=== PATIENT | male | born 1980 | race Caucasian/White ===

== ENCOUNTER 2017-09-19 22:49 | Observation (INO) ==
[2017-09-19] MEDS ORDERED: ONDANSETRON 4 MG/2 ML VIAL IV STA (23:49)
[2017-09-19] MEDS ORDERED: SODIUM CHLORIDE 0.9% 1,000 ML IV STA (23:49)
[2017-09-19] MEDS ORDERED: LORazepam 2 MG/1 ML VIAL IV STA (23:50)
[2017-09-20 00:14] LABS: Basophils # 0.1 10*3/uL (0.0-0.2); Basophils % 0.4 % (0.0-0.8); Eosinophils % 0.1 % (0.00-10.9); Hematocrit 49.8 VOL% (42.0-52.0); Hemoglobin 16.6 GM/DL (14.0-18.0); Immature Granulocytes % 0.5 %; Lymphocytes # 2.3 10*3/uL (1.4-4.0); Lymphocytes % 12.4 % (21.2-54.2); Mean Corpuscular HGB Conc 33.3 GM/DL (32-36); Mean Corpuscular Hemoglobin 28 PG (27-34); Mean Platelet Volume 11.2 FL (9.6-12.0); Monocytes # 1.1 10*3/uL (0.11-0.8); Monocytes % 6.1 % (1.7-12.7); Neutrophils # 14.9 10*3/uL (1.4-7.4); Neutrophils % 80.5 % (38.7-73.9); Platelet Count 292 T/CUMM (130-400); Red Blood Count 5.86 MC/CUMM (3.8-5.5); Red Cell Distribution Width 13.2 % (9.3-17.3); White Blood Count 18.5 T/CUMM (4-12)
[2017-09-20 00:34] LABS: Bilirubin,Total 0.6 MG/DL (0.2-1.0); Calcium 9.4 MG/DL (8.5-10.1); Osmolality,Calculated 277.2 MOS/KG (273-304); Potassium 4.1 MMOL/L (3.5-5.1); Total Protein 8.9 G/DL (6.4-8.3)
[2017-09-20] MEDS ORDERED: SODIUM CHLORIDE 0.9% 1,000 ML IV STA (02:05)
[2017-09-20] MEDS ORDERED: CEFEPIME 2,000 MG in SODIUM CHLORIDE 0.9% 100 ML IV STA (02:13)
[2017-09-20] MEDS ORDERED: ACETAMINOPHEN 500 MG TABLET PO STA (03:39)
[2017-09-20] MEDS ORDERED: ACETAMINOPHEN 325 MG TABLET PO PRN (04:24)
[2017-09-20] MEDS ORDERED: ONDANSETRON 4 MG/2 ML VIAL IV PRN (04:24)
[2017-09-20] MEDS: SODIUM CHLORIDE 0.9% 1,000 ML IV SCH ×3 (05:42→20:08)
[2017-09-20 06:03] LABS: PT Patient Result 10.7 SECS; Partial Thromboplastin Time 25.9 SECS (0-40)
[2017-09-20 06:10] LABS: CKMB % 1.9 %
[2017-09-20 06:55] LABS: Barbiturates Screen,Urine Negative (Negative); Benzodiazepines Screen,Urine Negative (Negative); Cannabinoid Screen,Urine Negative (Negative); Opiate Screen,Urine Negative (Negative); Phencyclidine Screen,Urine Negative (Negative)
[2017-09-20 07:05] LABS: Amorphous Crystals,Urine Occasional /HPF (Few); Apearance,Urine CLEAR (Clear); Bacteria,Urine Occasional /HPF (Few); Bilirubin,Urine Negative (Negative); Blood, Urine Small mg/dL (Negative); Glucose,Urine (UA) Negative (Negative); Hyaline Casts,Urine 10 /LPF (0-3); Ketones,Urine Negative (Negative); Mucus,Urine Occasional /LPF (Occasional); Nitrite,Urine Negative (Negative); Protein,Urine Negative; RBC,Urine 12 /HPF (0-4); Squamous Epithelial Cell,Urine Occasional /HPF (0-10); Urine Color Yellow (Yellow); Urine Specific Gravity 1.017 (1.001-1.035); Urine Urobilinogen < 2.0 EU/DL (0.2-1.0); WBC,Urine 6 /HPF (0-6)
[2017-09-20 13:25] LABS: Basophils # 0.1 10*3/uL (0.0-0.2); Basophils % 0.7 % (0.0-0.8); Eosinophils # 0.1 10*3/uL (0.0-0.87); Eosinophils % 1.3 % (0.00-10.9); Hematocrit 39.8 VOL% (42.0-52.0); Hemoglobin 13.1 GM/DL (14.0-18.0); Immature Granulocytes % 0.2 %; Immature Granulocytes Absolute 0.02 #; Lymphocytes # 2.7 10*3/uL (1.4-4.0); Lymphocytes % 30.8 % (21.2-54.2); Mean Corpuscular HGB Conc 32.9 GM/DL (32-36); Mean Corpuscular Hemoglobin 28 PG (27-34); Mean Corpuscular Volume 86.1 FL (87-102); Mean Platelet Volume 11.5 FL (9.6-12.0); Monocytes # 0.7 10*3/uL (0.11-0.8); Monocytes % 7.4 % (1.7-12.7); Neutrophils # 5.2 10*3/uL (1.4-7.4); Neutrophils % 59.6 % (38.7-73.9); Platelet Count 213 T/CUMM (130-400); Red Blood Count 4.62 MC/CUMM (3.8-5.5); Red Cell Distribution Width 13.4 % (9.3-17.3); White Blood Count 8.7 T/CUMM (4-12)
[2017-09-20 13:54] LABS: Albumin 3.3 G/DL (3.4-5.0); Bilirubin,Total 0.4 MG/DL (0.2-1.0); Calcium 7.9 MG/DL (8.5-10.1); Osmolality,Calculated 282.5 MOS/KG (273-304); Potassium 3.4 MMOL/L (3.5-5.1); Total Protein 6.5 G/DL (6.4-8.3)
[2017-09-21 03:52] LABS: Basophils # 0.1 10*3/uL (0.0-0.2); Basophils % 0.8 % (0.0-0.8); Eosinophils # 0.2 10*3/uL (0.0-0.87); Eosinophils % 3.3 % (0.00-10.9); Hematocrit 38.4 VOL% (42.0-52.0); Hemoglobin 12.7 GM/DL (14.0-18.0); Immature Granulocytes % 0.3 %; Immature Granulocytes Absolute 0.02 #; Lymphocytes # 2.3 10*3/uL (1.4-4.0); Lymphocytes % 37.5 % (21.2-54.2); Mean Corpuscular HGB Conc 33.1 GM/DL (32-36); Mean Corpuscular Hemoglobin 29 PG (27-34); Mean Corpuscular Volume 86.1 FL (87-102); Mean Platelet Volume 11.9 FL (9.6-12.0); Monocytes # 0.5 10*3/uL (0.11-0.8); Monocytes % 8.5 % (1.7-12.7); Neutrophils # 3.1 10*3/uL (1.4-7.4); Neutrophils % 49.6 % (38.7-73.9); Platelet Count 184 T/CUMM (130-400); Red Blood Count 4.46 MC/CUMM (3.8-5.5); Red Cell Distribution Width 13.7 % (9.3-17.3); White Blood Count 6.1 T/CUMM (4-12)
[2017-09-21] MEDS: SODIUM CHLORIDE 0.9% 1,000 ML IV SCH (04:03)
[2017-09-21 04:16] LABS: Albumin 2.9 G/DL (3.4-5.0); Bilirubin,Total 0.6 MG/DL (0.2-1.0); Calcium 7.7 MG/DL (8.5-10.1); Osmolality,Calculated 289.8 MOS/KG (273-304); Potassium 3.9 MMOL/L (3.5-5.1); Total Protein 5.5 G/DL (6.4-8.3)
[2017-09-21 07:39] VITALS: BP 113/70
== END 2017-09-21 10:40 | disposition home or self-care (01) ==
LOC: N.ED 22:49 → N.EDINP 22:49 → N.2E 09-20 04:43

== ENCOUNTER 2017-12-18 12:14 | Observation (INO) ==
[2017-12-18 13:53] LABS: Apearance,Urine CLEAR (Clear); Bilirubin,Urine Negative (Negative); Blood, Urine Large mg/dL (Negative); Glucose,Urine (UA) Negative (Negative); Hyaline Casts,Urine 1 /LPF (0-3); Ketones,Urine Negative (Negative); Mucus,Urine Occasional /LPF (Occasional); Nitrite,Urine Negative (Negative); Protein,Urine Negative; RBC,Urine 38 /HPF (0-4); Squamous Epithelial Cell,Urine Occasional /HPF (0-10); Urine Color Yellow (Yellow); Urine Specific Gravity 1.017 (1.001-1.035); Urine Urobilinogen < 2.0 EU/DL (0.2-1.0); WBC,Urine 1 /HPF (0-6)
[2017-12-18] MEDS ORDERED: ONDANSETRON 4 MG/2 ML VIAL IV STA (14:22)
[2017-12-18] MEDS ORDERED: KETOROLAC 30 MG/1 ML VIAL IV STA (14:22)
[2017-12-18] MEDS ORDERED: ONDANSETRON 4 MG/2 ML VIAL ONE ×2 (14:23→16:48)
[2017-12-18] MEDS ORDERED: KETOROLAC 30 MG/1 ML VIAL ONE (14:23)
[2017-12-18] MEDS ORDERED: HYDROmorphone 2 MG/1 ML VIAL IV STA ×3 (14:36→16:05)
[2017-12-18] MEDS ORDERED: HYDROmorphone 2 MG/1 ML VIAL ONE ×2 (14:37→16:07)
[2017-12-18] MEDS ORDERED: SODIUM CHLORIDE 0.9% 1,000 ML IV STA (14:42)
[2017-12-18 15:03] LABS: Basophils # 0.1 10*3/uL (0.0-0.2); Basophils % 0.8 % (0.0-0.8); Eosinophils # 0.3 10*3/uL (0.0-0.87); Eosinophils % 3.8 % (0.00-10.9); Hematocrit 45.6 VOL% (42.0-52.0); Hemoglobin 14.9 GM/DL (14.0-18.0); Immature Granulocytes % 0.4 %; Immature Granulocytes Absolute 0.03 #; Lymphocytes % 24.7 % (21.2-54.2); Mean Corpuscular HGB Conc 32.7 GM/DL (32-36); Mean Corpuscular Hemoglobin 29 PG (27-34); Mean Corpuscular Volume 87.4 FL (87-102); Mean Platelet Volume 11.5 FL (9.6-12.0); Monocytes # 0.5 10*3/uL (0.11-0.8); Monocytes % 6.3 % (1.7-12.7); Neutrophils # 5.1 10*3/uL (1.4-7.4); Platelet Count 222 T/CUMM (130-400); Red Blood Count 5.22 MC/CUMM (3.8-5.5); Red Cell Distribution Width 13.4 % (9.3-17.3); White Blood Count 7.9 T/CUMM (4-12)
[2017-12-18 15:38] LABS: Calcium 8.9 MG/DL (8.5-10.1); Osmolality,Calculated 282.3 MOS/KG (273-304)
[2017-12-18] MEDS ORDERED: ACETAMINOPHEN 325 MG TABLET PO PRN (17:27)
[2017-12-18] MEDS ORDERED: MORPHINE 4 MG/1 ML VIAL ONE (19:29)
[2017-12-18] MEDS: MORPHINE 10 MG/1 ML VIAL IV PRN ×2 (19:31→23:50)
[2017-12-18] MEDS: TAMSULOSIN 0.4 MG CAPSULE PO SCH (21:23)
[2017-12-18] MEDS: DEXTROSE 5% NACL 0.45% 1,000 ML IV SCH (21:23)
[2017-12-18] MEDS: ONDANSETRON 4 MG/2 ML VIAL IV PRN (23:49)
[2017-12-19] MEDS ORDERED: PROMETHAZINE 25 MG/1 ML VIAL IM PRN (00:34)
[2017-12-19] MEDS: MEPERIDINE 50 MG/1 ML VIAL IV PRN ×4 (00:59→21:49)
[2017-12-19] MEDS: DEXTROSE 5% NACL 0.45% 1,000 ML IV SCH ×3 (07:07→19:44)
[2017-12-19] MEDS: ONDANSETRON 4 MG/2 ML VIAL IV PRN (12:35)
[2017-12-19] MEDS: TAMSULOSIN 0.4 MG CAPSULE PO SCH ×2 (14:39→20:47)
[2017-12-20] MEDS ORDERED: FAMOTIDINE 20 MG TABLET PO ONE (05:00)
[2017-12-20] MEDS ORDERED: DIAZEPAM 5 MG TABLET PO ONE (05:00)
[2017-12-20] MEDS ORDERED: ONDANSETRON 4 MG/2 ML VIAL IV PRN ×2 (05:00→10:40)
[2017-12-20] MEDS: MEPERIDINE 50 MG/1 ML VIAL IV PRN (05:38)
[2017-12-20] MEDS ORDERED: cefTRIAXone 1,000 MG in SYRINGE 1 EACH IV ONE (07:00)
[2017-12-20] MEDS: DEXTROSE 5% NACL 0.45% 1,000 ML IV SCH (08:01)
[2017-12-20] MEDS: TAMSULOSIN 0.4 MG CAPSULE PO SCH (08:31)
[2017-12-20] MEDS ORDERED: ONDANSETRON 4 MG/2 ML VIAL ONE ×2 (10:37→10:41)
[2017-12-20] MEDS ORDERED: MIDAZOLAM 2 MG/2 ML VIAL ONE (10:37)
[2017-12-20] MEDS ORDERED: PROPOFOL 200 MG/20 ML VIAL IV ONE (10:37)
[2017-12-20] MEDS ORDERED: PHENYLEPHRINE 1 MG/10 ML SYRINGE IV ONE (10:37)
[2017-12-20] MEDS ORDERED: fentaNYL 100 MCG/2 ML VIAL ONE (10:37)
[2017-12-20] MEDS ORDERED: ePHEDrine 50 MG/ML AMP ONE (10:37)
[2017-12-20] MEDS ORDERED: SEVOFLURANE 1 UNIT/15 MINUTE INH ONE (10:37)
[2017-12-20] MEDS ORDERED: HYDROmorphone 2 MG/1 ML VIAL ONE (10:41)
[2017-12-20] MEDS: HYDROmorphone 2 MG/1 ML VIAL IV PRN ×4 (10:43→11:07)
[2017-12-20] MEDS ORDERED: MEPERIDINE 25 MG/1 ML VIAL ONE ×3 (11:09→11:32)
[2017-12-20] MEDS: MEPERIDINE 25 MG/1 ML VIAL IV PRN ×2 (11:11→11:32)
[2017-12-20 12:07] VITALS: BP 140/69
== END 2017-12-20 14:00 | disposition home or self-care (01) ==
LOC: N.ED 12:14 → N.EDINP 12:14 → N.5E 20:21
PROVIDERS: ADMIT Urology; ATTEND Urology

== ENCOUNTER 2021-11-15 09:20 | Observation (INO) ==
[2021-11-15] MEDS ORDERED: KETOROLAC 30 MG/1 ML VIAL IV STA (09:49)
[2021-11-15] MEDS ORDERED: ONDANSETRON 4 MG/2 ML VIAL IV STA ×2 (09:50→11:45)
[2021-11-15] MEDS ORDERED: ONDANSETRON 4 MG/2 ML VIAL ONE (09:50)
[2021-11-15] MEDS ORDERED: KETOROLAC 30 MG/1 ML VIAL ONE (09:50)
[2021-11-15] MEDS ORDERED: SODIUM CHLORIDE 0.9% 2,000 ML IV STA (09:56)
[2021-11-15 10:23] LABS: Albumin 4.1 G/DL (3.4-5.0); Bilirubin,Total 0.4 MG/DL (0.20-1.00); Calcium 9.2 MG/DL (8.5-10.1); Osmolality,Calculated 279.5 MOS/KG (273-304); Potassium 3.6 MMOL/L (3.5-5.1); Total Protein 7.6 G/DL (6.4-8.2)
[2021-11-15] MEDS ORDERED: PROMETHAZINE INJ 25 MG in SODIUM CHLORIDE 0.9% 50 ML IV STA (10:25)
[2021-11-15] MEDS ORDERED: HYDROmorphone 1 MG/1 ML SYRINGE IV STA ×3 (10:25→13:02)
[2021-11-15 10:27] LABS: Basophils # 0.1 10*3/uL (0.0-0.2); Basophils % 0.9 % (0.0-0.8); Eosinophils # 0.4 10*3/uL (0.0-0.87); Eosinophils % 4.6 % (0.00-10.9); Hematocrit 45.8 VOL% (42.0-52.0); Immature Granulocytes % 0.3 %; Immature Granulocytes Absolute 0.02 #; Lymphocytes # 1.9 10*3/uL (1.4-4.0); Lymphocytes % 23.9 % (21.2-54.2); Mean Corpuscular HGB Conc 30.1 GM/DL (32-36); Mean Corpuscular Volume 83.1 FL (87-102); Mean Platelet Volume 12.2 FL (9.6-12.0); Monocytes # 0.6 10*3/uL (0.11-0.8); Neutrophils % 63.3 % (38.7-73.9); Platelet Count 236 T/CUMM (130-400); Red Blood Count 5.51 MC/CUMM (3.8-5.5); Red Cell Distribution Width 14.6 % (9.3-17.3); White Blood Count 7.8 T/CUMM (4-12)
[2021-11-15] MEDS ORDERED: PROMETHAZINE 25 MG/1 ML VIAL ONE (10:27)
[2021-11-15 10:31] LABS: Hemoglobin 13.8 GM/DL (14.0-18.0)
[2021-11-15 12:34] LABS: Mucus,Urine Many /LPF (Occasional); RBC,Urine 1611 /HPF (0-4)
[2021-11-15 12:36] LABS: Bilirubin,Urine Small mg/dL (Negative); Blood, Urine Large mg/dL (Negative); Glucose,Urine (UA) Negative (Negative); Ketones,Urine Negative (Negative); Nitrite,Urine Negative (Negative); Protein,Urine 100 mg/dL (Negative); Urine Appearance Slightly Cloudy (Clear); Urine Color Brown (Yellow); Urine Specific Gravity 1.023 (1.001-1.035); Urine Urobilinogen 0.2 eU/dL (<2.0); Urine pH 5.5 (4.5-8.0)
[2021-11-15] MEDS ORDERED: ACETAMINOPHEN 325 MG TABLET PO PRN (14:20)
[2021-11-15] MEDS ORDERED: PROMETHAZINE 25 MG/1 ML VIAL IM PRN (14:20)
[2021-11-15] MEDS ORDERED: diphenhydrAMINE 50 MG/1 ML VIAL IV PRN (14:22)
[2021-11-15] MEDS ORDERED: SIMETHICONE CHEW 125 MG TABLET PO PRN (14:22)
[2021-11-15] MEDS ORDERED: oxyCODONE/ACETAMINOPHEN 5-325 MG TABLET PO PRN (14:22)
[2021-11-15] MEDS: cefTRIAXone 1,000 MG in SODIUM CHLORIDE 0.9% 100 ML IV SCH (14:54)
[2021-11-15] MEDS: ACETAMINOPHEN 325 MG TABLET PO SCH ×2 (15:44→21:28)
[2021-11-15] MEDS: HYDROmorphone 1 MG/1 ML SYRINGE IV PRN ×3 (16:41→21:29)
[2021-11-15] MEDS: SODIUM CHLORIDE 0.9% 1,000 ML IV SCH (16:41)
[2021-11-15] MEDS: FLUoxetine 20 MG CAPSULE PO SCH (21:28)
[2021-11-15] MEDS: DOCUSATE SODIUM 100 MG CAPSULE PO SCH (21:28)
[2021-11-16] MEDS: HYDROmorphone 1 MG/1 ML SYRINGE IV PRN ×6 (00:47→20:49)
[2021-11-16] MEDS: ONDANSETRON 4 MG/2 ML VIAL IV PRN ×3 (01:05→20:44)
[2021-11-16] MEDS: SODIUM CHLORIDE 0.9% 1,000 ML IV SCH ×3 (03:30→17:09)
[2021-11-16] MEDS: ACETAMINOPHEN 325 MG TABLET PO SCH ×4 (03:33→22:32)
[2021-11-16 05:09] LABS: Basophils # 0.1 10*3/uL (0.0-0.2); Basophils % 0.7 % (0.0-0.8); Eosinophils # 0.2 10*3/uL (0.0-0.87); Eosinophils % 3.4 % (0.00-10.9); Immature Granulocytes % 0.3 %; Immature Granulocytes Absolute 0.02 #; Lymphocytes # 1.6 10*3/uL (1.4-4.0); Lymphocytes % 22.3 % (21.2-54.2); Mean Corpuscular Volume 83.9 FL (87-102); Mean Platelet Volume 11.9 FL (9.6-12.0); Monocytes # 0.6 10*3/uL (0.11-0.8); Monocytes % 7.8 % (1.7-12.7); Neutrophils % 65.5 % (38.7-73.9); Platelet Count 199 T/CUMM (130-400); Red Blood Count 4.77 MC/CUMM (3.8-5.5); Red Cell Distribution Width 14.6 % (9.3-17.3); White Blood Count 7.1 T/CUMM (4-12)
[2021-11-16 05:12] LABS: Calcium 8.3 MG/DL (8.5-10.1); Osmolality,Calculated 288.8 MOS/KG (273-304); Potassium 4.9 MMOL/L (3.5-5.1)
[2021-11-16] MEDS: DOCUSATE SODIUM 100 MG CAPSULE PO SCH ×2 (09:03→20:20)
[2021-11-16] MEDS: TAMSULOSIN 0.4 MG CAPSULE PO SCH (09:03)
[2021-11-16] MEDS: KETOROLAC 15 MG/1 ML VIAL IV SCH ×3 (09:04→20:23)
[2021-11-16] MEDS: cefTRIAXone 1,000 MG in SODIUM CHLORIDE 0.9% 100 ML IV SCH (14:35)
[2021-11-16] MEDS: FLUoxetine 20 MG CAPSULE PO SCH (20:20)
[2021-11-17] MEDS: HYDROmorphone 1 MG/1 ML SYRINGE IV PRN ×2 (00:06→03:45)
[2021-11-17] MEDS: SODIUM CHLORIDE 0.9% 1,000 ML IV SCH (00:06)
[2021-11-17] MEDS: KETOROLAC 15 MG/1 ML VIAL IV SCH ×3 (02:30→14:37)
[2021-11-17] MEDS: ACETAMINOPHEN 325 MG TABLET PO SCH ×2 (03:45→10:06)
[2021-11-17 05:23] LABS: Calcium 8.4 MG/DL (8.5-10.1); Osmolality,Calculated 282.1 MOS/KG (273-304); Potassium 4.3 MMOL/L (3.5-5.1)
[2021-11-17 05:31] LABS: Basophils % 0.7 % (0.0-0.8); Eosinophils # 0.3 10*3/uL (0.0-0.87); Eosinophils % 4.3 % (0.00-10.9); Hematocrit 39.3 VOL% (42.0-52.0); Hemoglobin 11.8 GM/DL (14.0-18.0); Immature Granulocytes % 0.2 %; Immature Granulocytes Absolute 0.01 #; Lymphocytes # 1.6 10*3/uL (1.4-4.0); Lymphocytes % 28.2 % (21.2-54.2); Mean Corpuscular Volume 83.8 FL (87-102); Mean Platelet Volume 12.2 FL (9.6-12.0); Monocytes # 0.4 10*3/uL (0.11-0.8); Monocytes % 7.4 % (1.7-12.7); Neutrophils % 59.2 % (38.7-73.9); Platelet Count 176 T/CUMM (130-400); Red Blood Count 4.69 MC/CUMM (3.8-5.5); Red Cell Distribution Width 14.6 % (9.3-17.3); White Blood Count 5.8 T/CUMM (4-12)
[2021-11-17] MEDS ORDERED: propofoL 200 MG/20 ML VIAL IV ONE (08:51)
[2021-11-17] MEDS ORDERED: LIDOCAINE 2% 5 ML VIAL ONE (08:51)
[2021-11-17] MEDS ORDERED: SEVOFLURANE 1 UNIT/15 MINUTE INH ONE (08:51)
[2021-11-17] MEDS ORDERED: fentaNYL 100 MCG/2 ML VIAL ONE ×2 (08:51→09:21)
[2021-11-17] MEDS ORDERED: MIDAZOLAM 2 MG/2 ML VIAL ONE ×3 (08:51→09:05)
[2021-11-17] MEDS ORDERED: LACTATED RINGERS 1,000 ML IV SCH (09:00)
[2021-11-17] MEDS: DOCUSATE SODIUM 100 MG CAPSULE PO SCH (10:05)
[2021-11-17] MEDS: TAMSULOSIN 0.4 MG CAPSULE PO SCH (10:05)
[2021-11-17] MEDS ORDERED: KETOROLAC 30 MG/1 ML VIAL ONE (10:43)
[2021-11-17] MEDS ORDERED: LACTATED RINGERS 1,000 ML IV ONE (10:48)
[2021-11-17] MEDS ORDERED: PROMETHAZINE INJ 25 MG in SODIUM CHLORIDE 0.9% 50 ML IV PRN (10:53)
[2021-11-17] MEDS ORDERED: ONDANSETRON 4 MG/2 ML VIAL IV PRN (10:53)
[2021-11-17] MEDS ORDERED: diphenhydrAMINE 50 MG/1 ML VIAL IV PRN (10:53)
[2021-11-17] MEDS ORDERED: HYDROmorphone 1 MG/1 ML SYRINGE IV PRN (10:53)
[2021-11-17] MEDS: MEPERIDINE 25 MG/1 ML VIAL IV PRN ×2 (11:15→11:25)
[2021-11-17 14:37] VITALS: BP 113/65
== END 2021-11-17 15:40 | disposition home or self-care (01) ==
LOC: N.ED 09:20 → N.EDINP 09:20 → N.3E 16:26
PROVIDERS: ADMIT Surgery; ATTEND Surgery